=== PATIENT | female | born 1935 | race Caucasian/White ===

== ENCOUNTER → 2016-07-23 | Outpatient (CLI) | payer MEDICARE, OTHER ==
[~2016-07-23] MED LIST: AMLO5TAB2 PO; ASPI81CH CHEW; CHOL1TAB42 PO; CIPR250T52 PO; ESTR0.62 VAGINAL; ISOS20TA PO; LEVO88TA2 PO; MULTTAB67 PO; NITR1SUB3 SL; REST0.05 EACH EYE; SIMV10TA PO; SIMV20TA PO; TELM40 PO
[2016-07-23 10:08] LABS: AUTOMATED NEUTROPHIL # 4.9 TH/MM3 (1.8-7.7); BASOPHIL % 0.4 % (0.0-2.0); EOSINOPHIL # 0.2 TH/MM3 (0-0.4); HEMATOCRIT 37.1 % (35.0-46.0); HEMO FLAGS DIFF FINAL; LYMPH % 25.4 % (9.0-44.0); MEAN CELL VOLUME 86.4 FL (80.0-100.0); MEAN CORPUSCULAR HEMOGLOBIN 29.4 PG (27.0-34.0); MONO % 8.2 % (0.0-8.0); PLATELET COUNT 240 TH/MM3 (150-450); RED BLOOD COUNT 4.29 MIL/MM3 (4.00-5.30); RED CELL DISTRIBUTION WIDTH 13.5 % (11.6-17.2); WHITE BLOOD COUNT 7.8 TH/MM3 (4.0-11.0)
[2016-07-23 10:37] LABS: ANION GAP 8 MEQ/L (5-15); AST (GOT) 18 U/L (15-37); BLOOD UREA NITROGEN 14 MG/DL (7-18); CHLORIDE 101 MEQ/L (98-107); GLOMERULAR FILTRATION RATE 73 ML/MIN (>89); GLUCOSE,FASTING 84 MG/DL (74-99); POTASSIUM 4.3 MEQ/L (3.5-5.1); SODIUM (NA) 134 MEQ/L (136-145)
[2016-07-23 10:48] LABS: ALKALINE PHOSPHATASE 93 U/L (45-117); ALT (GPT) 28 U/L (10-53); HDL CHOLESTEROL 62.2 MG/DL (40.0-60.0); LDL CHOLESTEROL 75 MG/DL (0-99); TOTAL BILIRUBIN ADULT 0.4 MG/DL (0.2-1.0)
== END ==
LOC: PLAB 07:31
PROVIDERS: ATTEND Family Medicine
DX: Z00.00 Encounter for general adult medical examination without abnormal findings (principal); E87.1 Hypo-osmolality and hyponatremia; E03.8 Other specified hypothyroidism; I10 Essential (primary) hypertension
CPT/HCPCS: 36415; 80053; 80061; 84443; 85025

== ENCOUNTER → 2016-12-09 | Outpatient (CLI) | payer MEDICARE, OTHER ==
[2016-12-09 13:14] LABS: AUTOMATED NEUTROPHIL # 5.4 TH/MM3 (1.8-7.7); BASOPHIL % 0.5 % (0.0-2.0); EOSINOPHIL # 0.1 TH/MM3 (0-0.4); EOSINOPHIL % 0.8 % (0.0-4.0); HEMATOCRIT 37.7 % (35.0-46.0); HEMO FLAGS DIFF FINAL; LYMPH % 20.3 % (9.0-44.0); LYMPHOCYTE # 1.6 TH/MM3 (1.0-4.8); MEAN CELL VOLUME 86.1 FL (80.0-100.0); MEAN CORPUSCULAR HEMOGLOBIN 29.9 PG (27.0-34.0); MEAN CORPUSCULAR HGB CONC 34.7 % (32.0-36.0); MONO % 7.6 % (0.0-8.0); NEUT % 70.8 % (16.0-70.0); PLATELET COUNT 266 TH/MM3 (150-450); RED BLOOD COUNT 4.38 MIL/MM3 (4.00-5.30); RED CELL DISTRIBUTION WIDTH 13.6 % (11.6-17.2); WHITE BLOOD COUNT 7.7 TH/MM3 (4.0-11.0)
[2016-12-09 13:56] LABS: ALKALINE PHOSPHATASE 106 U/L (45-117); ALT (GPT) 27 U/L (10-53); ANION GAP 9 MEQ/L (5-15); AST (GOT) 25 U/L (15-37); BICARBONATE 24.2 MEQ/L (21.0-32.0); BLOOD UREA NITROGEN 14 MG/DL (7-18); CHLORIDE 94 MEQ/L (98-107); GLOMERULAR FILTRATION RATE 71 ML/MIN (>89); POTASSIUM 4.6 MEQ/L (3.5-5.1); SODIUM (NA) 127 MEQ/L (136-145); TOTAL BILIRUBIN ADULT 0.5 MG/DL (0.2-1.0)
== END ==
LOC: PLAB 10:38
PROVIDERS: ATTEND Family Medicine
DX: R10.13 Epigastric pain (principal); R11.0 Nausea
CPT/HCPCS: 36415; 80053; 85025

== ENCOUNTER 2016-12-16 18:17 | Observation (INO) | payer MEDICARE, OTHER ==
[~2016-12-16] VITALS: Ht 158.8 cm; Wt 65.0 kg
[2016-12-16] VITALS (7 sets, daily range): BP systolic 146–197; BP diastolic 75–97; PULSE 64–80; RESP 15–20; TEMP 98.1–98.3; O2SAT 97–98
[~2016-12-16 18:17] MED LIST changes: -ASPI81CH CHEW; -ESTR0.62 VAGINAL; -ISOS20TA PO; -MULTTAB67 PO; -NITR1SUB3 SL; -SIMV20TA PO
--- NOTE | 2016-12-16 19:19 | PD ---
HPI Chief Complaint: Chest Pain Time Seen by Provider: 18:43 Travel History International Travel<30 days: No Contact w/Intl Traveler<30days: No Traveled to known affect area: No History of Present Illness HPI This 81-year-old female says she's been having some chest pain. When she is active she seems to get the pain when she stopped doing what she was doing sheet and rests it goes away. It's been going on throughout the day. The longest episode lasted about 20 minutes. There was no associated shortness of breath. There is no radiation of the pain. She does not recall having pain like this before. She has a history of hypertension and is on Micardis and amlodipine. Her gave her an extra 25 mg of metoprolol because her blood pressure was elevated at home. She does not take aspirin. She has a history of some stomach trouble and has avoided in the past. PFSH Past Medical History Arthritis: Yes (BACK LUMBAR) Blood Disorders: No Cancer: No Cardiovascular Problems: No High Cholesterol: Yes Cerebrovascular Accident: Yes Diabetes: No Diminished Hearing: No Endocrine: Yes Gastrointestinal Disorders: Yes (GERD) Genitourinary: Yes (FREQ. 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 CATARACT EXTRACT.) Genitourinary Surgery: Yes (RADIO FREQUENCY ABLATION RENAL CYST, SUB URETHRAL SLING) Gynecologic Surgery: No Joint Replacement: No Oral Surgery: No Pacemaker: No Thoracic Surgery: No Other Surgery: Yes (SUB URETHRAL SLING, ABLATION TO RIGHT KIDNEY) Social History Alcohol Use: No Tobacco Use: No Substance Use: No Allergies-Medications (Allergen,Severity, Reaction): Coded Allergies: Sulfa (Verified Allergy, Severe, Rash, 12/16/16) Reported Meds & Prescriptions Reported Meds & Active Scripts Active Reported Amlodipine (Amlodipine Besylate) 5 Mg Tab 0.5 Tab PO DAILY Cipro (Ciprofloxacin HCl) 250 Mg Tab 250 Mg PO EVERY OTHER DAY Restasis Opth 0.05% (Cyclosporine Opth 0.05%) 0.05% Emul 1 Drop EACH EYE BID Vitamin D-3 (Cholecalciferol) 2,000 Unit Tab 1 Tab PO DAILY Simvastatin 10 Mg Tab 10 Mg PO DAILY Micardis (Telmisartan) 40 Mg Tab 40 Mg PO DAILY Levothyroxine (Levothyroxine Sodium) 88 Mcg Tab 88 Mcg PO DAILY Review of Systems General / Constitutional: No: Fever, Chills Eyes: No: Diploplia, Blurred Vision HENT: No: Headaches, Vertigo Cardiovascular: Positive: Chest Pain or Discomfort, No: Palpitations Respiratory: No: Cough, Shortness of Breath Gastrointestinal: No: Vomiting, Diarrhea Genitourinary: No: Urgency, Frequency Musculoskeletal: No: Myalgias, Arthralgias Skin: No Rash, No Itching Neurologic: No: Weakness, Dizziness Psychiatric: No: Anxiety, Depression Endocrine: No: Heat Intolerance, Cold Intolerance Hematologic/Lymphatic: No: Easy Bruising Physical Exam Narrative GENERAL: Well-developed female SKIN: Focused skin assessment warm/dry. HEAD: Atraumatic. Normocephalic. EYES: Pupils equal and round. No scleral icterus. No injection or drainage. ENT: No nasal bleeding or discharge. Mucous membranes pink and moist. NECK: Trachea midline. No JVD. CARDIOVASCULAR: Regular rate and rhythm. No murmur appreciated. RESPIRATORY: No accessory muscle use. Clear to auscultation. Breath sounds equal bilaterally. GASTROINTESTINAL: Abdomen soft, non-tender, nondistended. Hepatic and splenic margins not palpable. MUSCULOSKELETAL: No obvious deformities. No clubbing. No cyanosis. No edema. NEUROLOGICAL: Awake and alert. No obvious cranial nerve deficits. Motor grossly within normal limits. Normal speech. PSYCHIATRIC: Appropriate mood and affect; insight and judgment normal. Data Data Last Documented VS Vital Signs Date Time Temp Pulse Resp B/P Pulse Ox O2 Delivery O2 Flow Rate FiO2 12/16/16 19:28 97 Room Air 12/16/16 19:03 68 15 197/90 12/16/16 18:19 98.1 Orders Electrocardiogram (12/16/16 19:16) Complete Blood Count With Diff (12/16/16 19:16) Comprehensive Metabolic Panel (12/16/16 19:16) Magnesium (Mg) (12/16/16 19:16) Prothrombin Time / Inr (Pt) (12/16/16 19:16) Act Partial Throm Time (Ptt) (12/16/16 19:16) Troponin I (12/16/16 19:16) Chest, Single Ap (12/16/16 19:16) Ecg Monitoring (12/16/16 19:16) Iv Access Insert/Monitor (12/16/16 19:16) Oximetry (12/16/16 19:16) Sodium Chloride 0.9% Flush (Ns Flush) (12/16/16 19:30) Aspirin Ec (Ecotrin Ec) (12/16/16 19:30) Labs Laboratory Tests Test 12/16/16 19:00 White Blood Count 9.9 TH/MM3 Red Blood Count 4.52 MIL/MM3 Hemoglobin 13.1 GM/DL Hematocrit 39.8 % Mean Corpuscular Volume 88.0 FL Mean Corpuscular Hemoglobin 29.0 PG Mean Corpuscular Hemoglobin 33.0 % Concent Red Cell Distribution Width 12.6 % Platelet Count 287 TH/MM3 Mean Platelet Volume 7.9 FL Neutrophils (%) (Auto) 62.4 % Lymphocytes (%) (Auto) 26.8 % Monocytes (%) (Auto) 7.9 % Eosinophils (%) (Auto) 1.9 % Basophils (%) (Auto) 1.0 % Neutrophils # (Auto) 6.1 TH/MM3 Lymphocytes # (Auto) 2.7 TH/MM3 Monocytes # (Auto) 0.8 TH/MM3 Eosinophils # (Auto) 0.2 TH/MM3 Basophils # (Auto) 0.1 TH/MM3 CBC Comment DIFF FINAL Differential Comment Prothrombin Time 10.6 SEC Prothromb Time International 1.0 RATIO Ratio Activated Partial 29.3 SEC Thromboplast Time Sodium Level 132 MEQ/L Potassium Level 3.7 MEQ/L Chloride Level 98 MEQ/L Carbon Dioxide Level 26.3 MEQ/L Anion Gap 8 MEQ/L Blood Urea Nitrogen 11 MG/DL Creatinine 0.73 MG/DL Estimat Glomerular Filtration 77 ML/MIN Rate Random Glucose 106 MG/DL Calcium Level 9.1 MG/DL Magnesium Level 2.4 MG/DL Total Bilirubin 0.4 MG/DL Aspartate Amino Transf 23 U/L (AST/SGOT) Alanine Aminotransferase 30 U/L (ALT/SGPT) Alkaline Phosphatase 111 U/L Troponin I LESS THAN 0.02 NG/ML Total Protein 8.7 GM/DL Albumin 4.4 GM/DL MDM Medical Decision Making Medical Screen Exam Complete: Yes Emergency Medical Condition: Yes Medical Record Reviewed: Yes Differential Diagnosis Differential includes hypertension, atypical chest pain, coronary artery disease Narrative Course Chest x-ray is negative. EKG shows normal sinus rhythm. Troponin is negative. Patient will be admitted to chest pain center for further evaluation of the chest pain Diagnosis Primary Impression: Chest pain Qualified Code: R07.9 - Chest pain, unspecified type Admitting Information Admitting Physician Requests: Observation Moses Guerrero MD December 16, 2016 19:18
[2016-12-16 19:29] LABS: AUTOMATED NEUTROPHIL # 6.1 TH/MM3 (1.8-7.7); BASOPHIL # 0.1 TH/MM3 (0-0.2); EOSINOPHIL # 0.2 TH/MM3 (0-0.4); EOSINOPHIL % 1.9 % (0.0-4.0); HEMATOCRIT 39.8 % (35.0-46.0); HEMO FLAGS DIFF FINAL; LYMPH % 26.8 % (9.0-44.0); LYMPHOCYTE # 2.7 TH/MM3 (1.0-4.8); MONO % 7.9 % (0.0-8.0); NEUT % 62.4 % (16.0-70.0); PLATELET COUNT 287 TH/MM3 (150-450); RED BLOOD COUNT 4.52 MIL/MM3 (4.00-5.30); RED CELL DISTRIBUTION WIDTH 12.6 % (11.6-17.2); WHITE BLOOD COUNT 9.9 TH/MM3 (4.0-11.0)
[2016-12-16] MEDS ORDERED: ASPIRIN EC 325 MG TABEC PO ONE (19:30)
[2016-12-16] MEDS ORDERED: SODIUM CHLORIDE 0.9% FLUSH 10 ML FLUSH IVF PRN (19:30)
[2016-12-16 19:37] LABS: CHLORIDE 98 MEQ/L (98-107); POTASSIUM 3.7 MEQ/L (3.5-5.1); SODIUM (NA) 132 MEQ/L (136-145)
[2016-12-16 19:41] LABS: ANION GAP 8 MEQ/L (5-15); APTT (PATIENT) 29.3 SEC (24.3-30.1); BICARBONATE 26.3 MEQ/L (21.0-32.0); BLOOD UREA NITROGEN 11 MG/DL (7-18); MAGNESIUM 2.4 MG/DL (1.5-2.5); PROTHROMBIN TIME - PATIENT 10.6 SEC (9.8-11.6)
[2016-12-16 19:44] LABS: ALT (GPT) 30 U/L (10-53); AST (GOT) 23 U/L (15-37); GLOMERULAR FILTRATION RATE 77 ML/MIN (>89)
[2016-12-16 19:46] LABS: TOTAL BILIRUBIN ADULT 0.4 MG/DL (0.2-1.0)
[2016-12-16 19:47] LABS: ALKALINE PHOSPHATASE 111 U/L (45-117)
--- NOTE | 2016-12-16 19:48 | RADHPO ---
EXAM DATE/TIME: 12/16/2016 19:32 [facility] COMPARISON: No previous studies available for comparison. INDICATIONS : Chest pain. MEDICAL HISTORY : None. SURGICAL HISTORY : None. ENCOUNTER: Initial ACUITY: 2 days PAIN SCORE: 2/10 LOCATION: Bilateral chest FINDINGS: A single view of the chest demonstrates the lungs to be symmetrically aerated without evidence of mas s, infiltrate or effusion. The cardiomediastinal contours are unremarkable. Osseous structures are intact. CONCLUSION: No acute disease. Ash Gibbons MD on December 16, 2016 at 19:46 Board Certified Radiologist. This report was verified electronically.
[2016-12-16] MEDS ORDERED: SODIUM CHLORIDE 0.9% FLUSH 10 ML FLUSH IV FLUSH PRN (20:15)
[2016-12-16] MEDS: SODIUM CHLORIDE 0.9% FLUSH 10 ML FLUSH IV FLUSH SCH (21:00)
[2016-12-17] VITALS (7 sets, daily range): BP systolic 100–158; BP diastolic 65–88; PULSE 69–87; RESP 18–20; TEMP 97.2–98; O2SAT 95–98
[2016-12-17] MEDS: LEVOTHYROXINE SODIUM 88 MCG TAB PO SCH (05:25)
--- NOTE | 2016-12-17 08:11 | EKG ---
Date Performed: 12/16/2016 Time Performed: 22:57:54 PTAGE: 81 years EKG: Sinus rhythm . Septal T wave changes are nonspecific Borderline ECG PREVIOUS TRACING : 10/30/2009 17.46 No significant change from previous tracing noted. DOCTOR: Sarthak Diaz Interpretating Date/Time 12/17/2016 08:09:30
--- NOTE | 2016-12-17 08:20 | EKG ---
Date Performed: 12/16/2016 Time Performed: 18:33:36 PTAGE: 81 years EKG: Sinus rhythm Normal ECG PREVIOUS TRACING : 10/30/2009 17.46 No significant change from previous tracing noted. DOCTOR: Sarthak Diaz Interpretating Date/Time 12/17/2016 08:19:40
--- NOTE | 2016-12-17 08:41 | HHI.HP ---
[facility] Service [facility] Primary Care Physician Debbie Jules MD Admission Diagnosis CHEST PAIN Diagnoses: (1) Chest pain Diagnosis: Principal Chief Complaint: chest pain Travel History International Travel<30 Days: No Contact w/Intl Traveler <30 Da: No Traveled to Known Affected Are: No History of Present Illness patient is a 81 y/o female with history of hypertension and hypothyroidism who presented to ER with chest pain. she says that the pain started last night. pain was mild in intensity. it had some radiation to the left arm and was associated with nausea. she says that she wasn't feeling good yesterday and when she checked her blood pressure ' it was high'. she's pain free now and denies any sob or nausea. Review of Systems Constitutional: DENIES: Fever, Weight loss, Chills, Night Sweats Eyes: DENIES: Blurred vision, Diplopia, Vision loss, Double Vision Ears, nose, mouth, throat: DENIES: Tinnitus, Vertigo, Throat pain, Epistaxis Respiratory: DENIES: Apneas, Cough, Snoring, Wheezing, Hemoptysis, Sputum production, Shortness of breath Cardiovascular: COMPLAINS OF: Chest pain, DENIES: Palpitations, Syncope, Dyspnea on Exertion, PND, Lower Extremity Edema, Orthopnea, Claudication Gastrointestinal: COMPLAINS OF: Nausea, DENIES: Abdominal pain, Black stools, Bloody stools, Constipation, Diarrhea, Vomiting, Difficulty Swallowing, Anorexia Genitourinary: DENIES: Urinary frequency, Urgency, Hematuria, Dysuria Musculoskeletal: DENIES: Joint pain, Muscle aches, Stiffness, Joint Swelling Integumentary: DENIES: Rash Neurologic: DENIES: Abnormal gait, Headache, Localized weakness, Paresthesias, Seizures, Speech Problems, Tremor, Poor Balance Psychiatric: DENIES: Anxiety, Confusion, Mood changes, Depression, Hallucinations, Agitation, Suicidal Ideation, Homicidal Ideation, Delusions Past Family Social History Past Medical History hypertension hypothyroidism Past Surgical History cholecystectomy hip surgery Reported Medications Amlodipine (Amlodipine Besylate) 5 Mg Tab 0.5 Tab PO DAILY Cipro (Ciprofloxacin HCl) 250 Mg Tab 250 Mg PO EVERY OTHER DAY Restasis Opth 0.05% (Cyclosporine Opth 0.05%) 0.05% Emul 1 Drop EACH EYE BID Vitamin D-3 (Cholecalciferol) 2,000 Unit Tab 1 Tab PO DAILY Simvastatin 10 Mg Tab 10 Mg PO DAILY Micardis (Telmisartan) 40 Mg Tab 40 Mg PO DAILY Levothyroxine (Levothyroxine Sodium) 88 Mcg Tab 88 Mcg PO DAILY Allergies: Coded Allergies: Sulfa (Verified Allergy, Severe, Rash, 12/16/16) Active Ordered Medications Current Medications Sodium Chloride (NS Flush) 2 ml UNSCH PRN IVF FLUSH AFTER USING IV ACCESS; Start 12/16/16 at 19:30; Stop 12/16/16 at 21:01; Status DC Aspirin (Ecotrin Ec) 325 mg ONCE ONCE PO Last administered on 12/16/16 19:20 ; Start 12/16/16 at 19:30; Stop 12/16/16 at 19:31; Status DC Sodium Chloride (NS Flush) 2 ml UNSCH PRN IV FLUSH FLUSH AFTER USING IV ACCESS ; Start 12/16/16 at 20:15 Sodium Chloride (NS Flush) 2 ml BID IV FLUSH ; Start 12/16/16 at 21:00 Amlodipine Besylate (Norvasc) 2.5 mg DAILY PO ; Start 12/17/16 at 09:00 Levothyroxine Sodium (Synthroid) 88 mcg DAILY@07 PO Last administered on 05:25; Start 12/17/16 at 07:00 Pravastatin Sodium (Pravachol) 20 mg DAILY PO CM; Start 12/17/16 at 09:00 Losartan Potassium (Cozaar) 50 mg DAILY PO BPM; Start 12/17/16 at 09:00 Family History heart attack in father at his 60's. Social History no smoking or drinking. Physical Exam Vital Signs Vital Signs Date Time Temp Pulse Resp B/P Pulse Ox O2 Delivery O2 Flow Rate FiO2 12/17/16 08:21 97 21 12/17/16 04:00 97.2 73 20 116/70 97 12/16/16 22:08 64 12/16/16 22:00 98.3 68 20 157/87 98 12/16/16 21:39 63 16 146/75 98 12/16/16 21:39 98 21 12/16/16 20:01 65 166/84 97 Room Air 12/16/16 19:28 97 Room Air 12/16/16 19:03 68 15 197/90 98 Room Air 12/16/16 18:38 72 12/16/16 18:19 98.1 80 17 176/97 98 Physical Exam GENERAL: This is a well-nourished, well-developed patient, in no apparent distress. SKIN: No rashes, ecchymoses or lesions. Cool and dry. HEAD: Atraumatic. Normocephalic. No temporal or scalp tenderness. EYES: Pupils equal round and reactive. Extraocular motions intact. No scleral icterus. No injection or drainage. ENT: Nose without bleeding, purulent drainage or septal hematoma. Throat without erythema, tonsillar hypertrophy or exudate. Uvula midline. Airway patent. NECK: Trachea midline. No JVD or lymphadenopathy. Supple, nontender, no meningeal signs. CARDIOVASCULAR: Regular rate and rhythm without murmurs, gallops, or rubs. RESPIRATORY: Clear to auscultation. Breath sounds equal bilaterally. No wheezes , rales, or rhonchi. GASTROINTESTINAL: Abdomen soft, non-tender, nondistended. No hepato-splenomegaly , or palpable masses. No guarding. MUSCULOSKELETAL: Extremities without clubbing, cyanosis, or edema. No joint tenderness, effusion, or edema noted. No calf tenderness. Negative Homans sign bilaterally. NEUROLOGICAL: Awake and alert. Cranial nerves II through XII intact. Motor and sensory grossly within normal limits. Five out of 5 muscle strength in all muscle groups. Normal speech. Laboratory Laboratory Tests Test 12/16/16 12/17/16 12/17/16 19:00 00:00 01:00 White Blood Count 9.9 Red Blood Count 4.52 Hemoglobin 13.1 Hematocrit 39.8 Mean Corpuscular Volume 88.0 Mean Corpuscular Hemoglobin 29.0 Mean Corpuscular Hemoglobin 33.0 Concent Red Cell Distribution Width 12.6 Platelet Count 287 Mean Platelet Volume 7.9 Neutrophils (%) (Auto) 62.4 Lymphocytes (%) (Auto) 26.8 Monocytes (%) (Auto) 7.9 Eosinophils (%) (Auto) 1.9 Basophils (%) (Auto) 1.0 Neutrophils # (Auto) 6.1 Lymphocytes # (Auto) 2.7 Monocytes # (Auto) 0.8 Eosinophils # (Auto) 0.2 Basophils # (Auto) 0.1 CBC Comment DIFF FINAL Differential Comment Prothrombin Time 10.6 Prothromb Time International 1.0 Ratio Activated Partial 29.3 Thromboplast Time Sodium Level 132 Potassium Level 3.7 Chloride Level 98 Carbon Dioxide Level 26.3 Anion Gap 8 Blood Urea Nitrogen 11 Creatinine 0.73 Estimat Glomerular Filtration 77 Rate Random Glucose 106 Calcium Level 9.1 Magnesium Level 2.4 Total Bilirubin 0.4 Aspartate Amino Transf 23 (AST/SGOT) Alanine Aminotransferase 30 (ALT/SGPT) Alkaline Phosphatase 111 Troponin I LESS THAN 0.02 0.07 0.07 Total Protein 8.7 Albumin 4.4 Total Creatine Kinase 98 86 Result Diagram: 12/16/16189912/16/161899 Imaging Last Impressions Chest X-Ray 12/16/161915 Signed Impressions: Service Date/Time: Friday, December 16, 2016 19:32 - CONCLUSION: No acute disease. Ash Gibbons MD EKG; sinus rhythm with no acute ST-T changes. Assessment and Plan Assessment and Plan A/P - chest pain with mild elevation of troponin continue aspirin and statin- will consult cardiology -hypertension- better controlled- continue amlodipine and cozaar- continue to monitor and adjust the regimen as needed -hypothyroidism- continue levothyroxine -DVT prophylaxis with SCD's Discussed Condition With the patient. Problem Qualifiers (1) Chest pain: Qualified Code: R07.9 - Chest pain, unspecified type Sindhu Jensen MD December 17, 2016 08:40
[2016-12-17] MEDS: PRAVASTATIN SOD 20 MG TAB PO SCH (09:50)
[2016-12-17] MEDS: LOSARTAN 50 MG TAB PO SCH (09:50)
[2016-12-17] MEDS: amLODIPine BESYLATE 5 MG TAB PO SCH (09:50)
[2016-12-17] MEDS: SODIUM CHLORIDE 0.9% FLUSH 10 ML FLUSH IV FLUSH SCH ×2 (09:50→21:49)
[2016-12-17] MEDS: ASPIRIN EC 81 MG TABEC PO SCH (09:54)
--- NOTE | 2016-12-17 12:00 | EKG ---
Date Performed: 12/17/2016 Time Performed: 00:56:30 PTAGE: 81 years EKG: Sinus rhythm Normal ECG PREVIOUS TRACING : 12/16/2016 22.57 No significant change from previous tracing noted. DOCTOR: Sarthak Diaz Interpretating Date/Time 12/17/2016 12:00:00
--- NOTE | 2016-12-17 20:46 | MB ---
cc: HILARIA JENSEN HUMAYUN A. M.D. DATE OF CONSULTATION: 12/17/2016 REASON FOR CONSULTATION: Thank you, Dr. Jensen, for asking us to see his very pleasant 81 year-old white female who presents with chest pain. She had some borderline troponin at less than 0.02, 0.07, 0.07. The patient has been feeling "crummy" over the last weekend. She also was noted to have very high blood pressures. She now states that she is feeling much better. PAST MEDICAL HISTORY: Positive for hypotension, hypothyroidism, cholecystectomy, hip surgery. MEDICATIONS AT HOME: Include: 1. Amlodipine 2. Cipro. 3. Restasis. 4. Simvastatin. 5. Micardis. 6. Levothyroxine. 7. Aspirin ALLERGIES SULFA. FAMILY HISTORY: Positive for heart attack. PHYSICAL EXAMINATION: VITAL SIGNS: Pulse was 73, blood pressure 142/80, respiratory rate 18. EYES: No xanthelasma. MOUTH: Shows no cyanosis or pallor. NECK: No JVD. HEART: Two heart sounds, no murmurs. CHEST: Chest was clear. ABDOMEN: Soft. No hepatosplenomegaly. EXTREMITIES: Legs reveal no cyanosis or edema. NEUROLOGIC: Grossly intact. SKIN: Grossly intact. PSYCHOLOGICAL: No suicidal ideation. LABORATORY DATA: White count 9.9, hemoglobin 13.5, troponin slightly higher 0.07, 0.07, INR 1.0, hemoglobin 13.1, white count 9.9. Platelet count 287. Electrocardiogram is read and shows no significant change, sinus rhythm. ASSESSMENT/PLAN The patient has been ruled out for myocardial infarction. We have given her the option of outpatient nuclear stress testing. She prefers inpatient. Will therefore order the nuclear stress test. If the nuclear stress test is negative, she can be discharged. Thank you kindly for asking us to see this very pleasant patient. Arash Rodriguez MD, FRCP,[facility] /7:38 PM /8:24 PM
[2016-12-18] VITALS: BP 123/72; PULSE 74; RESP 20; TEMP 96.3; O2SAT 94
[2016-12-18 04:00] VITALS: BP 153/80; PULSE 66; RESP 20; TEMP 97.4; O2SAT 96
[2016-12-18] MEDS: LEVOTHYROXINE SODIUM 88 MCG TAB PO SCH (06:16)
[2016-12-18 07:56] VITALS: BP 153/77; PULSE 72; RESP 18; TEMP 96.8; O2SAT 96
[2016-12-18] MEDS: SODIUM CHLORIDE 0.9% FLUSH 10 ML FLUSH IV FLUSH SCH (08:16)
[2016-12-18] MEDS: PRAVASTATIN SOD 20 MG TAB PO SCH (08:17)
[2016-12-18] MEDS: amLODIPine BESYLATE 5 MG TAB PO SCH (08:17)
[2016-12-18] MEDS: LOSARTAN 50 MG TAB PO SCH (08:17)
[2016-12-18] MEDS: ASPIRIN EC 81 MG TABEC PO SCH (08:17)
--- NOTE | 2016-12-18 08:23 | HHI.PR ---
Subjective Remarks resting comfortably with no distress. no chest pain or sob. no new complaints. awaiting stress test. Objective Vitals Vital Signs Date Time Temp Pulse Resp B/P Pulse Ox O2 Delivery O2 Flow Rate FiO2 12/18/16 07:56 96.8 72 18 153/77 96 12/18/16 04:00 97.4 66 20 153/80 96 12/18/16 00:00 96.3 74 20 123/72 94 12/17/16 21:37 97 21 12/17/16 20:00 97.3 87 20 110/65 97 12/17/16 20:00 77 12/17/16 16:00 98.0 83 20 100/65 98 12/17/16 13:24 97.9 81 18 142/80 95 I/O 12/17/16 12/17/16 12/17/16 12/18/16 12/18/16 12/18/16 07:00 15:00 23:00 07:00 15:00 23:00 Intake Total 0 ml 500 ml 360 ml 0 ml Balance 0 ml 500 ml 360 ml 0 ml Intake Oral 0 ml 500 ml 360 ml 0 ml # Voids 2 2 1 # Bowel Movements 0 2 0 Result Diagram: 12/16/16189912/16/161899 Imaging Last Impressions Chest X-Ray 12/16/161915 Signed Impressions: Service Date/Time: Friday, December 16, 2016 19:32 - CONCLUSION: No acute disease. Ash Gibbons MD Objective Remarks GENERAL: This is a well-nourished, well-developed patient, in no apparent distress. CARDIOVASCULAR: Regular rate and regular rhythm without murmurs, gallops, or rubs. RESPIRATORY: Clear to auscultation. Breath sounds equal bilaterally. No wheezes , rales, or rhonchi. GASTROINTESTINAL: Abdomen soft, non-tender, nondistended. Normal, active bowel sounds MUSCULOSKELETAL: Extremities without clubbing, cyanosis, or edema. NEURO: Alert & Oriented x4 to person, place, time, situation. Moves all ext x4 Procedures none Medications and IVs Current Medications Sodium Chloride (NS Flush) 2 ml UNSCH PRN IVF FLUSH AFTER USING IV ACCESS; Start 12/16/16 at 19:30; Stop 12/16/16 at 21:01; Status DC Aspirin (Ecotrin Ec) 325 mg ONCE ONCE PO Last administered on 12/16/16 19:20 ; Start 12/16/16 at 19:30; Stop 12/16/16 at 19:31; Status DC Sodium Chloride (NS Flush) 2 ml UNSCH PRN IV FLUSH FLUSH AFTER USING IV ACCESS ; Start 12/16/16 at 20:15 Sodium Chloride (NS Flush) 2 ml BID IV FLUSH Last administered on 12/17/16 21: 49; Start 12/16/16 at 21:00 Amlodipine Besylate (Norvasc) 2.5 mg DAILY PO Last administered on 12/17/16 09 :50; Start 12/17/16 at 09:00 Levothyroxine Sodium (Synthroid) 88 mcg DAILY@07 PO Last administered on 06:16; Start 12/17/16 at 07:00 Pravastatin Sodium (Pravachol) 20 mg DAILY PO CM Last administered on 12/17/16 09:50; Start 12/17/16 at 09:00 Losartan Potassium (Cozaar) 50 mg DAILY PO BPM Last administered on 12/17/16 09 :50; Start 12/17/16 at 09:00 Aspirin (Ecotrin Ec) 81 mg DAILY PO Last administered on 12/17/16 09:54; Start 12/17/16 at 09:00 A/P Assessment and Plan A/P - chest pain with mild elevation of troponin continue aspirin and statin- cardiology consult appreciated- plan for stress test today. -hypertension- better controlled- continue amlodipine and cozaar- -hypothyroidism- continue levothyroxine -DVT prophylaxis with SCD's Discharge Planning dc home today if the stress test is negative. f/u; pcp. see med list. d/w the patient and the RN. Sindhu Jensen MD December 18, 2016 08:23
--- NOTE | 2016-12-18 08:26 | HHI.DCPOC ---
Discharge Care Plan Diagnosis: (1) Chest pain Your Health Problems Are: Chest Pain Goals to Promote Your Health * To prevent worsening of your condition and complications * To maintain your health at the optimal level Directions to Meet Your Goals Take your medications as prescribed Follow your dietary instruction Follow activity as directed Keep your appointments as scheduled Take your immunizations and boosters as scheduled If your symptoms worsen call your PCP, if no PCP go to Urgent Care Center or Emergency Room Smoking is Dangerous to Your Health. Avoid second hand smoke Call the 24-hour hour crisis hotline for domestic abuse at Sindhu Jensen MD December 18, 2016 08:26
[2016-12-18] MEDS ORDERED: REGADENOSON INJ 0.4 MG/5 ML SYR IV ONE (10:35)
[2016-12-18 12:00] VITALS: BP 132/71; PULSE 78; RESP 18; TEMP 98.1; O2SAT 98
--- NOTE | 2016-12-18 12:15 | RADHPO ---
EXAM DATE/TIME: 12/18/2016 10:29 [facility] COMPARISON: No previous studies available for comparison. INDICATIONS : Chest pain for 1 day. Atrial fibrillation. DOSE: 25.9 mCi Tc99m Myoview at stress. 8.2 mCi Tc99m Myoview at rest. 0.4 mg Lexiscan STRESS SYMPTOMS: Stomach ache and short of breath. EJECTION FRACTION: > 70% MEDICAL HISTORY : Hypothyroidism. SURGICAL HISTORY : Cholecystectomy. Left hip surgery and urethral sling. ENCOUNTER: Initial ACUITY: 1 day PAIN SCALE: 2/10 LOCATION: Midsternal chest TECHNIQUE: The patient underwent pharmacologic stress with infusion of prescribed dose. Continuous ECG tracing was monitored during stress. Gated SPECT imaging was performed after stress and conventional SPECT i maging was performed at rest. The examination was performed on a SPECT/CT scanner, both attenuation and non-corrected datasets were reviewed. FINDINGS: DISTRIBUTION: The maximum perfused segment at stress is anterior lateral wall. There is redistribution in the mid septal wall. GATED STUDY: The ejection fraction is greater than 70%, however there is hypokinesis in the septum. CONCLUSION: Findings would be consistent with stress-induced ischemia mid inferior wall. RISK CATEGORY: Low (<1% Annual Mortality Rate) Eliel Rios MD FACR on December 18, 2016 at 12:09 Board Certified Radiologist. This report was verified electronically.
--- NOTE | 2016-12-18 13:19 | HHI.PR ---
Addendum To [facility] Progress Not Reason for addendum: Additonal documentation (result of stress test d/w ; will be followed up as outpatient.) Sindhu Jensen MD December 18, 2016 13:19
--- NOTE | 2016-12-18 13:20 | HHI.DS ---
Discharge Summary Admission Date December 16, 2016 at 20:09 Discharge Date: December 18, 2016 Admitting Diagnosis CHEST PAIN (1) Chest pain ICD Code: R07.9 Diagnosis: Principal Procedures none Brief History - From Admission patient is a 81 y/o female with history of hypertension and hypothyroidism who presented to ER with chest pain. she says that the pain started last night. pain was mild in intensity. it had some radiation to the left arm and was associated with nausea. she says that she wasn't feeling good yesterday and when she checked her blood pressure ' it was high'. she's pain free now and denies any sob or nausea. CBC/BMP: 12/16/160 12/16/161899 Significant Findings Laboratory Tests Test 12/16/16 12/17/16 12/17/16 19:00 00:00 01:00 Sodium Level 132 MEQ/L (136-145) Estimat Glomerular Filtration 77 ML/MIN (>89) Rate Troponin I LESS THAN 0.02 0.07 NG/ML 0.07 NG/ML NG/ML (0.02-0.05) (0.02-0.05) (0.02-0.05) Total Protein 8.7 GM/DL (6.4-8.2) Imaging Last Impressions Myocardial Perfusion Scan Nuc Med 12/18/16 0000 Signed Impressions: Service Date/Time: Sunday, December 18, 2016 10:29 - CONCLUSION: Findings would be consistent with stress-induced ischemia mid inferior wall. RISK CATEGORY: Low (<1%% Annual Mortality Rate) Eliel Rios MD FACR Chest X-Ray 12/16/16 1916 Signed Impressions: Service Date/Time: Friday, December 16, 2016 19:32 - CONCLUSION: No acute disease. Ash Gibbons MD PE at Discharge GENERAL: This is a well-nourished, well-developed patient, in no apparent distress. CARDIOVASCULAR: Regular rate and regular rhythm without murmurs, gallops, or rubs. RESPIRATORY: Clear to auscultation. Breath sounds equal bilaterally. No wheezes , rales, or rhonchi. GASTROINTESTINAL: Abdomen soft, non-tender, nondistended. Normal, active bowel sounds MUSCULOSKELETAL: Extremities without clubbing, cyanosis, or edema. NEURO: Alert & Oriented x4 to person, place, time, situation. Moves all ext x4 Hospital Course - chest pain with mild elevation of troponin continue aspirin and statin- cardiology consult appreciated- plan for stress test today. -hypertension- better controlled- continue amlodipine and cozaar- -hypothyroidism- continue levothyroxine -DVT prophylaxis with SCD's Pt Condition on Discharge: Good Discharge Disposition: Discharge Home Discharge Time: <= 30 minutes Discharge Instructions DIET: Follow Instructions for: Heart Healthy Diet Activities you can perform: Regular-No Restrictions Follow up Referrals: Cardiology PCP Follow-up Continued Medications: Amlodipine (Amlodipine) 5 Mg Tab 0.5 TAB PO DAILY Blood Pressure Management #30 Ref 0 TAB Cholecalciferol (Vitamin D-3) 2,000 Unit Tab 1 TAB PO DAILY Ciprofloxacin (Cipro) 250 Mg Tab 250 MG PO EVERY OTHER DAY Infection Ref 0 TAB Cyclosporine Opth 0.05% (Restasis Opth 0.05%) 0.05% Emul 1 DROP EACH EYE BID Dry Eye #1 Ref 0 BOX Levothyroxine (Levothyroxine) 88 Mcg Tab 88 MCG PO DAILY Thyroid #30 Ref 0 TAB Simvastatin (Simvastatin) 10 Mg Tab 10 MG PO DAILY Cholesterol Management #30 Ref 0 TAB Telmisartan (Micardis) 40 Mg Tab 40 MG PO DAILY Blood Pressure Management #30 Ref 0 TAB Sindhu Jensen MD December 18, 2016 13:20
[2016-12-18] MEDS ORDERED: ASPI81CH CHEW (13:21)
[2017-01-09] MEDS ORDERED: SIMV20TA PO (13:02)
== END 2016-12-18 15:15 | disposition home or self-care (01) ==
LOC: PHED 18:17 → PHEDA 20:09 → PH3A 21:47
PROVIDERS: ADMIT Internal Medicine; ATTEND Internal Medicine
DX: R07.89 Other chest pain (principal); I10 Essential (primary) hypertension; E03.9 Hypothyroidism, unspecified; R79.89 Other specified abnormal findings of blood chemistry; E78.00 Pure hypercholesterolemia, unspecified; K21.9 Gastro-esophageal reflux disease without esophagitis; M47.896 Other spondylosis, lumbar region; Z88.2 Allergy status to sulfonamides; Z86.73 Personal history of transient ischemic attack (TIA), and cerebral infarction without residual deficits; Z82.49 Family history of ischemic heart disease and other diseases of the circulatory system
CPT/HCPCS: 71010; 78452; 80053; 82550; 83735; 84484; 85025; 85610; 85730; 93005; 93017; 99285; A9502; G0378; J2785

== ENCOUNTER 2016-12-27 09:48 | Day surgery (SDC) | payer MEDICARE, OTHER ==
[~2016-12-27] VITALS: Ht 157.5 cm; Wt 63.0 kg
[~2016-12-27 09:48] MED LIST changes: +ASPI81CH CHEW
[2016-12-27] MEDS ORDERED: NS 1000P @30 MLS/HR (KVO) IV SCH (10:00)
[2016-12-27 10:29] VITALS: BP 143/70; PULSE 75; RESP 18; TEMP 97.6; O2SAT 97
[2016-12-27] MEDS ORDERED: ASPIRIN 325 MG TAB PO SCH (10:30)
[2016-12-27] MEDS ORDERED: NITR1SUB3 SL (10:39)
[2016-12-27] MEDS ORDERED: MULTTAB67 PO (10:39)
[2016-12-27] MEDS ORDERED: ISOS20TA PO (10:39)
[2016-12-27] MEDS ORDERED: ESTR0.62 VAGINAL (10:39)
[2016-12-27 10:42] LABS: BASOPHIL % 0.5 % (0.0-2.0); EOSINOPHIL # 0.1 TH/MM3 (0-0.4); EOSINOPHIL % 1.2 % (0.0-4.0); HEMATOCRIT 39.4 % (35.0-46.0); HEMO FLAGS DIFF FINAL; LYMPH % 20.1 % (9.0-44.0); MEAN CELL VOLUME 88.2 FL (80.0-100.0); MEAN CORPUSCULAR HEMOGLOBIN 29.1 PG (27.0-34.0); MONO % 7.4 % (0.0-8.0); NEUT % 70.8 % (16.0-70.0); PLATELET COUNT 262 TH/MM3 (150-450); RED BLOOD COUNT 4.47 MIL/MM3 (4.00-5.30); RED CELL DISTRIBUTION WIDTH 13.8 % (11.6-17.2); WHITE BLOOD COUNT 9.9 TH/MM3 (4.0-11.0)
[2016-12-27 10:52] LABS: APTT (PATIENT) 25.5 SEC (24.3-30.1); PROTHROMBIN TIME - PATIENT 10.9 SEC (9.8-11.6)
[2016-12-27 11:00] LABS: BICARBONATE 22.5 MEQ/L (21.0-32.0)
[2016-12-27] MEDS ORDERED: SODIUM CHLOR 0.9% 1000 ML INJ 1,000 ML IV SCH (11:00)
[2016-12-27] MEDS ORDERED: MIDAZOLAM HCL 2 MG/2 ML VIAL ONE (12:16)
[2016-12-27] MEDS ORDERED: HEPARIN-NS/PF INJ 500 ML ONE (12:16)
--- NOTE | 2016-12-27 13:35 | CATHPROC ---
9Lenses HIS Report Study Information Study Number Admission Scheduled Start Study Start [id number] Dec 27 2016 9:48AM 12/27/2016 Dec 27 2016 12:00PM [place] Service Cardiac Catheterization Admit Source Facility Department Other [facility] - Packing Tractor Machine Operator Physician and Clinical Staff Initial Arash Thrasher Food Manager Elisabeth Sellers,RN Other cathlab, cathlab Recorder Carlyle Lin RCIS(BS) Scrub America Mccann,COMPLAINT EVALUATION SUPERVISOR TECH2 Procedures Performed Procedure Location (Site) Vessel Name Angiogram LV LV Ventricle Coronary Angiograms LCA Left Coronary Coronary Angiograms RCA Right Coronary L Heart Cath Equipment Time Bandoleer Straightener Stamper Description Size Mfg Part Number Used/Scraped TRANSDUCER, TRUWAVE [id number] 12:06 DEE SELLERS * Used W/STOCKCOCK *[id number]- INTRODUCER SET, 12:06 [facility]. FR 5 SC-NT-U-SST Used MICROPUNCTURE, STIFFENED *[id number] 538-476 *[id number] 538-420 *[id number] 538-453S *[id number] 12:06 [employer] PACK, CCL CUSTOM * Used *[id number] 12:06 [employer] PACER PEN, SKIN DUAL W/ RULER * Used *[id number] 12:06 Smart [employer] WIRE, 3MMJ .035 180CM 180CM Used *[id number] PROBE COVER, STERILE [id number] 12:06 [employer] * Used ULTRASOUND W/ GEL *[id number] 12:06 NAMIC MANIFOLD, 4 PORT * Used *[id number] 12:06 [employer] OMNIPAQUE, 350 MG, 150ML 150ML [id number] Used 13:10 [employer] OMNIPAQUE, 350 MG, 50ML 50ML [id number] Used [id number] 12:06 [employer] BLANKET,WARM AIR CCL * Used *[id number] 12:06 [employer] MEDICAL SHEATH, FR4 TERUMO (10CM) FR 4 [id number] Used History: Current Medications Medication Dosage/Unit Route Frequency Last Date/Time Taken NTG Patch Statins (any) History: Allergies Allergy Reaction Sulfa Rash JENIFER Inhibitors COUOGH Nitrofurantoin History: Risk Factors Family History of Hypertension Dyslipidemia Previous NM Previous Heart Failure Premature CAD Yes Yes Yes No No Prior Valve Prior PCI Prior CABG Surgery No No No Cerebrovascular Peripheral Artery Chronic Lung On Dialysis Diabetes Disease Disease Disease No No No No No History: Stress Tests Stress or Imaging Studies Performed Yes Standard Exercise Stress Test No Stress Echo No Stress Test SPECT Stress Test SPECT Result Stress Test SPECT Ischemia Risk/Extent Yes Positive Unavailable Stress Test CMR No Cardiac CTA Coronary Calcium Score No No History: Other Disease Selection Items HTN History: Other Current Smoker No Labs Hgb (g/dl) Hct (%) WBC (l/cumm) Platelets (thousands) 12.00-18.00 37.00-55.00 4.80-10.80 140.00-450.00 13.0 39.4 9.9 262 Glucose (mg/dl) BUN (mg/dl) Creatinine (mg/dl) BUN:Creatinine (1:x) 60.00-110.00 8.00-20.00 0.10-9.00 10.00-20.00 102 12 0.8 15 Na (meq/l) K (meq/l) 138.00-146.00 3.80-5.10 131 4 INR (PTT:PT) 0.50-2.00 1 CPK-MB (ng/ML) 0.00-7.00 Not Drawn Medication Medication Total Dose (Bolus/Oral) Medication Total Dosage/Unit 1% XYLOCAINE 20 mL FENTANYL 50 mcg OXYGEN 3 l/min VERSED 2 mg Medications (Bolus/Oral) Medication Time Given Dosage/Unit Administered By Reason VERSED 12/27/2016 12:54:02 PM 2 mg Elisabeth Sellers 2 mg VERSED given in lab by Elisabeth Sellers RN in Left Forearm via Peripheral IV. Ordered by Arash Kinney. FENTANYL 12/27/2016 12:55:02 PM 50 mcg Elisabeth Sellers 50 mcg FENTANYL given in lab by Elisabeth Sellers RN in Left Forearm via Peripheral IV. Ordered by Arash Farah. OXYGEN 12/27/2016 12:59:02 PM 3 l/min Elisabeth Sellers 3 l/min OXYGEN given in lab by Elisabeth Sellers RN via Nasal. Ordered by Arash Rodriguez. 1% XYLOCAINE 12/27/2016 12:59:23 PM 20 mL Arash Rodriguez 20 mL 1% XYLOCAINE given in lab by Arash Rodriguez in Right Groin via Subcutaneous. Ordered by Arsah Kinney. Medication (Drip) Medication Time Given Dosage/Unit Concentration/Unit Diluent (ml) Solution IV Solutions 12/27/2016 12:08:33 PM 0 mL (IV) 500 NaCl .9 Patient arrived on IV Solutions given by mendy brooke in Left Forearm via Peripheral IV. Pump/Dri p Flow = 20 ml/hr using NaCl .9. Ordered by Arash Rodriguez. Initial Case Assessment Cardiovascular HR Rhythm NIBP Chest Pain 82 sinus 146/75 0 Edema Present Skin color Skin None Normal Warm Dry Circulatory - Right Pulses Dorsalis Pedis Femoral 2 3 Scale (0,1,2,3,4,d) Circulatory - Left Pulses Dorsalis Pedis Femoral 2 3 Scale (0,1,2,3,4,d) Neurological State Oriented to time-place- Alert Moves all extremities person Respiration - General Respiration Rate SpO2 (%) (B/min) 15 95 Final Case Assessment Cardiovascular HR Rhythm NIBP Chest Pain 71 sinus 109/47 0 Edema Present Skin color Skin None Normal Warm Dry Circulatory - Right Pulses Dorsalis Pedis Femoral 2 3 Scale (0,1,2,3,4,d) Circulatory - Left Pulses Dorsalis Pedis Femoral 2 3 Scale (0,1,2,3,4,d) Neurological State Oriented to time-place- Alert Moves all extremities person Respiration - General Respiration Rate SpO2 (%) (B/min) 15 97 Chronological Log Time Study Chronological Log 12:08:16 Patient arrived via Bed. 12:08:19 Patient Name, D.O.B, / Armband Verified By R.N. 12:08:20 Consent signed by the physician and the patient and verified by the Packing Tractor Machine Operator staff. 12:08:20 Pre-op and post- op instructions given; patient acknowledges understanding of instructions. 12:08:25 Verbal Stimulation=2 Physical Stimulation=2 Airway=2 Respiration=2 TOTAL=8. (0=absent, 1=li mited, 2=present) 12:08:25 Presedation assessment performed by Packing Tractor Machine Operator RN. 12:08:27 Immediate Presedation assesment performed by physician. 12:08:28 Patient has been NPO for More than 6Hrs. 12:08:29 Skin Breakdown- none per patient 12:08:30 Patient Warmer Placed on the Table. 12:08:32 Viral Prominences Protected 12:08:33 A # 20 IV was noted in the Forearm (left). Grade = 0 Patient arrived on IV Solutions given by cathlab, cathlab in Left Forearm via Peripheral IV. Pu mp/Drip Flow = 20 ml/hr 12:08:33 using NaCl .9. Ordered by Arash Rodriguez. 12:08:34 History and physical on the chart or being dictated. Vitals capture started with the following parameters, Patient=Adult, Interval=15 min, Initial P kapktuu=717 mmHg, 12:15:37 Deflation Rate=5 mmHg Assessment: Initial Case, HR=82 BPM, Rhythm=sinus, NYQJ=159/75 mmhg, Chest Pain=0, Edema=None, Color=Normal, Skin = Warm, Dry Right Pulses: Greg Ped=2, Femoral=3 12:15:44 Left Pulses: Greg Ped=2, Femoral=3 Neurological: State=Alert, Ox3, FLOWER Respiration: Resp=15 B/min, SpO2=95 % 12:16:02 Reference ECG taken 12:16:50 HR=73 bpm, YVZY=629/75 mmhg, SpO2=98.0 %, Resp=15 B/min, Pain=0, Socorro=10, Huitron=2 12:21:18 HR=72 bpm, UGEB=454/68 mmhg, SpO2=97.0 %, Resp=14 B/min, Pain=0, Socorro=10, Huitron=2 12:25:37 Bilateral groins prepped with 2% chlorhexidine, and with a 3 min. waiting time. 12:26:13 HR=73 bpm, SDVL=729/76 mmhg, SpO2=97.0 %, Resp=15 B/min, Pain=0, Socorro=10, Huitron=2 12:29:06 Pressure channel 1 zeroed. 12:30:13 MD paged 12:31:17 HR=68 bpm, LYBG=788/65 mmhg, SpO2=96.0 %, Resp=15 B/min, Pain=0, Socorro=10, Huitron=2 12:36:16 HR=69 bpm, OFLB=036/67 mmhg, SpO2=97.0 %, Resp=12 B/min, Pain=0, Socorro=10, Huitron=2 12:41:19 HR=72 bpm, GBCU=147/64 mmhg, SpO2=95.0 %, Resp=17 B/min, Pain=0, Socorro=10, Huitron=2 12:46:16 HR=68 bpm, NNFO=417/62 mmhg, SpO2=96.0 %, Resp=16 B/min, Pain=0, Socorro=10, Huitron=2 12:51:13 HR=73 bpm, JSAV=835/69 mmhg, SpO2=98.0 %, Resp=15 B/min, Pain=0, Socorro=10, Huitron=2 12:54:02 2 mg VERSED given in lab by Elisabeth Sellers, SALVADOR in Left Forearm via Peripheral IV. Ordere d by Arash Rodriguez. 12:54:23 MD arrived. 12:54:29 Contrast Scanned 12:54:30 Immediate Presedation assesment performed by physician. 50 mcg FENTANYL given in lab by Elisabeth Sellers, SALVADOR in Left Forearm via Peripheral IV. Ordere d by Michael, 12:55:02 Arash. 12:56:55 HR=67 bpm, BAAY=526/56 mmhg, SpO2=94.0 %, Resp=15 B/min, Pain=0, Socorro=10, Huitron=2 Time Out. Correct patient, correct procedure,correct physician, ,power injector loaded with con trast with surgical team 12:58:47 present. Time Out Concurred by , individual staff in procedure 12:58:56 Case Start 12:58:57 Verbal Stimulation=2 Physical Stimulation=2 Airway=2 Respiration=2 TOTAL=8. (0=absent, 1=li mited, 2=present) 12:59:02 3 l/min OXYGEN given in lab by Elisabeth Sellers, SALVADOR via Nasal. Ordered by Arash Rodriguez . 20 mL 1% XYLOCAINE given in lab by Arash Rodriguez in Right Groin via Subcutaneous. Ordered by Michael, 12:59:23 Arash. 13:00:18 Access site was Right Femoral Artery. A INTRODUCER SET, MICROPUNCTURE, STIFFENED FR 5 was advanced into the Fem Art (right) using the 13:00:21 Percutaneous technique. A SHEATH, FR4 TERUMO (10CM) FR 4 was exchanged in the Fem Art (right). This was necessary in or shirley to 13:00:41 accomodate a larger catheter. A JL 4.0 INFINITI CATHETER FR 4 was advanced over a wire. OMNIPAQUE, 350 MG, 150ML 150ML was us ed for 13:01:10 injections. 13:01:13 HR=73 bpm, NIBP=96/55 mmhg, SpO2=96.0 %, Resp=12 B/min, Pain=0, Socorro=10, Huitron=2 Recorded Pressure: Ao, HR=67, Condition=Condition 1 13:03:57 (Aorta) Ao 84/42/60 13:04:10 The LCA was injected and visualized at various angles. OMNIPAQUE, 350 MG, 150ML 150ML used . 13:06:10 HR=74 bpm, HXKH=545/57 mmhg, SpO2=96.0 %, Resp=12 B/min, Pain=0, Socorro=10, Huitron=2 13:07:12 Catheter was removed A 3DRC INFINITI CATHETER FR 4 was advanced over a wire. OMNIPAQUE, 350 MG, 150ML 150ML was used for 13:07:13 injections. 13:09:22 The RCA was injected and visualized at various angles. OMNIPAQUE, 350 MG, 150ML 150ML used . 13:09:54 Catheter was removed A PIGTAIL ANG. INFINITI CATHETER FR 4 was advanced over a wire. OMNIPAQUE, 350 MG, 150ML 150ML was used 13:09:54 for injections. 13:11:15 HR=72 bpm, OJHD=636/47 mmhg, SpO2=96.0 %, Resp=15 B/min, Pain=0, Socorro=10, Huitron=2 Recorded Pressure: LV, HR=73, Condition=Condition 1 13:12:07 (Left Ventricle) LV 93/1/4 13:13:10 The LV was injected at ~CC/SEC~ cc/sec for a total of ~TOTAL~. OMNIPAQUE, 350 MG, 50ML 50M L used. 13:14:12 Catheter was removed 13:14:58 Case End 13:15:04 Sheath removed; pressure applied to access site. Assessment: Final Case, HR=71 BPM, Rhythm=sinus, KQZG=419/47 mmhg, Chest Pain=0, Edema=None, Color=Normal, Skin = Warm, Dry Right Pulses: Greg Ped=2, Femoral=3 13:15:08 Left Pulses: Greg Ped=2, Femoral=3 Neurological: State=Alert, Ox3, FLOWER Respiration: Resp=15 B/min, SpO2=97 % 13:16:03 No case complications noted. 13:16:04 Cine recording checked. 13:16:07 Bedside Report will be given. 13:16:09 Contrast Scanned 13:16:10 Verbal Stimulation=2 Physical Stimulation=2 Airway=2 Respiration=2 TOTAL=8. (0=absent, 1=l imited, 2=present) 13:16:14 HR=71 bpm, DMKE=871/57 mmhg, SpO2=98.0 %, Resp=19 B/min, Pain=0, Socorro=10, Huitron=2 13:16:17 A Left Heart Cath was performed. 13:21:17 HR=66 bpm, QGUF=124/48 mmhg, SpO2=96.0 %, Resp=14 B/min, Pain=0, Socorro=10, Huitron=2 13:26:14 HR=68 bpm, IXOR=406/54 mmhg, SpO2=96.0 %, Resp=16 B/min, Pain=0, Socorro=10, Huitron=2 13:31:15 HR=65 bpm, BZYT=093/53 mmhg, SpO2=96.0 %, Resp=16 B/min, Pain=0, Socorro=10, Huitron=2 13:34:45 Sterile dressing applied to site 13:34:46 Vitals capture stopped. 13:35:[facility] - Contrast Media Used In Study Contrast Total Opened (mL) Total Used (mL) Total Wasted (mL) Omnipaque 50 50 0 End Study - Maximum Contrast Load Max Contrast Load (mL) 393.8 End Study - Radiation Exposure Fluoro Time (minutes) 3.5 End Study - Patient Disposition Complications Transferred To Interventional Outcome No Packing Tractor Machine Operator Holding No attempt made
[2016-12-27] MEDS ORDERED: IOHEXOL 350 MG/ML 50 ML BTL (for Cath Lab) OTHER ONE (13:59)
--- NOTE | 2016-12-27 16:48 | EKG ---
Date Performed: 12/27/2016 Time Performed: 10:34:04 PTAGE: 81 years EKG: Sinus rhythm with borderline 1st degree A-V block Borderline ECG PREVIOUS TRACING : 12/17/2016 00.56 Compared to prior tracing no significant change DOCTOR: Emeli Manriquez Interpretating Date/Time 12/27/2016 16:47:22
--- NOTE | 2016-12-27 22:16 | MA ---
cc: ARASH RODRIGUEZ SANDRA L. MD DATE OF SURGERY 12/27/16 PROCEDURE Cardiac catheterization INDICATIONS Unstable angina, abnormal nuclear stress test CONSENT Full informed consent was obtained prior to procedure. Risk of , bleeding, myocardial infarction, stroke, foreseen and unforeseen complications were reviewed. The patient fully appeared to understand the risks. PROCEDURAL STATEMENT The patient was draped and prepped in usual manner. The right femoral artery was entered using a micropuncture technique with ultrasound via the 4-Vietnamese sheath. Left and right coronary catheters were used to intubate left and right coronaries. Pigtail catheter left ventricle. Multiple angiograms were carried out. At the end of the catheterization procedure all catheters and sheaths were removed. Manual pressure was applied until good hemostasis achieved. The patient returned to her room in stable condition. FINDINGS HEMODYNAMICS Aortic pressure 84/42 with a mean of 60, left ventricle pressure was 93 with a left ventricular pressure of 4. There was no evidence of gradient on pullback across the LV outflow tract and aortic valve. LEFT VENTRICULOGRAM Revealed ejection fraction of 60%. There was no evidence of MR . The left main was medium sized. The left anterior descending artery was a large vessel. There was evidence of disease in both the LAD at 50% in the mid LAD just at the bifurcation with the diagonal branch. There was also evidence of ostial 50% disease in the diagonal branch and also 50% disease in the mid diagonal branch. The diagonal branch was a medium to large vessel. The LAD was large. The circumflex vessel was a medium-sized vessel with two small first and second obtuse marginal branches and a medium size third obtuse marginal branch. There was a large intermediate ramus that was very tortuous but free of significant disease. The right coronary artery was a large dominant vessel with a large posterior descending artery and large posterolateral branch. CONCLUSION Single-vessel coronary artery disease involving the mid LAD and the diagonal branch of about 50%. Recommend medical management at this time. The nuclear stress test showed an inferior perfusion defect which is not significant. PLAN Medical management. Arash Rodriguez MD, FRCP,[facility]/ /1:35 PM /12:41 PM SANNA
[2017-01-09] MEDS ORDERED: SIMV20TA PO (13:02)
== END 2016-12-27 18:05 | disposition home or self-care (01) ==
LOC: HCAT 09:48 → HDIC 09:49 → HCAT 18:05
PROVIDERS: ATTEND Internal Medicine Cardiovascular Disease
DX: I25.110 Atherosclerotic heart disease of native coronary artery with unstable angina pectoris (principal); Z01.818 Encounter for other preprocedural examination
CPT/HCPCS: 80048; 85025; 85610; 85730; 93005; 93458; C1769; C1893; J1644; J2250; J3010; Q9967

== ENCOUNTER → 2017-01-14 | Outpatient (CLI) | payer MEDICARE, OTHER ==
[~2017-01-14] MED LIST changes: -AMLO5TAB2 PO; +ESTR0.62 VAGINAL; +ISOS20TA PO; +MULTTAB67 PO; +NITR1SUB3 SL; -SIMV10TA PO; +SIMV20TA PO
[2017-01-14 10:55] LABS: ANION GAP 6 MEQ/L (5-15); AST (GOT) 18 U/L (15-37); BICARBONATE 28.6 MEQ/L (21.0-32.0); BLOOD UREA NITROGEN 13 MG/DL (7-18); CHLORIDE 99 MEQ/L (98-107); GLOMERULAR FILTRATION RATE 91 ML/MIN (>89); GLUCOSE,FASTING 81 MG/DL (74-99); SODIUM (NA) 134 MEQ/L (136-145)
[2017-01-14 10:59] LABS: ALKALINE PHOSPHATASE 87 U/L (45-117); ALT (GPT) 24 U/L (10-53); HDL CHOLESTEROL 64.4 MG/DL (40.0-60.0); LDL CHOLESTEROL 57 MG/DL (0-99); TOTAL BILIRUBIN ADULT 0.3 MG/DL (0.2-1.0)
== END ==
LOC: PLAB 07:22
PROVIDERS: ATTEND Family Medicine
DX: I10 Essential (primary) hypertension (principal); E78.2 Mixed hyperlipidemia
CPT/HCPCS: 36415; 80053; 80061

== ENCOUNTER → 2017-07-24 | Outpatient (CLI) | payer MEDICARE, OTHER ==
[~2017-07-24] MED LIST changes: +ASPI-516 CHEW; -ASPI81CH CHEW; +BETH25TA2 PO; +CARV12.52 PO; +CIPR250T2 PO; +ECASA81 PO; +OMEP20TA93 PO
[2017-07-24 09:45] LABS: ALBUMIN 3.9 GM/DL (3.4-5.0); AST (GOT) 17 U/L (15-37); BICARBONATE 26.1 MEQ/L (21.0-32.0); BLOOD UREA NITROGEN 14 MG/DL (7-18); CALCIUM 9.4 MG/DL (8.5-10.1); CHLORIDE 97 MEQ/L (98-107); CREATININE 0.56 MG/DL (0.50-1.00); GLOMERULAR FILTRATION RATE 104 ML/MIN (>89); GLUCOSE,FASTING 87 MG/DL (74-99); SODIUM (NA) 131 MEQ/L (136-145)
[2017-07-24 09:46] LABS: CHOLESTEROL 135 MG/DL (120-200); TRIGLYCERIDES 82 MG/DL (42-150)
[2017-07-24 09:50] LABS: ALKALINE PHOSPHATASE 95 U/L (45-117); ALT (GPT) 20 U/L (10-53); HDL CHOLESTEROL 67.5 MG/DL (40.0-60.0); LDL CHOLESTEROL 51 MG/DL (0-99); TOTAL BILIRUBIN ADULT 0.4 MG/DL (0.2-1.0); TOTAL PROTEIN 7.8 GM/DL (6.4-8.2)
[2017-07-24 09:59] LABS: AUTOMATED NEUTROPHIL # 5.1 TH/MM3 (1.8-7.7); BASOPHIL # 0.1 TH/MM3 (0-0.2); BASOPHIL % 0.7 % (0.0-2.0); EOSINOPHIL # 0.3 TH/MM3 (0-0.4); EOSINOPHIL % 3.4 % (0.0-4.0); HEMATOCRIT 36.9 % (35.0-46.0); HEMOGLOBIN 12.6 GM/DL (11.6-15.3); LYMPH % 20.4 % (9.0-44.0); LYMPHOCYTE # 1.6 TH/MM3 (1.0-4.8); MEAN CELL VOLUME 88.2 FL (80.0-100.0); MEAN PLATELET VOLUME 7.6 FL (7.0-11.0); MONO % 10.1 % (0.0-8.0); MONOCYTE # 0.8 TH/MM3 (0-0.9); NEUT % 65.4 % (16.0-70.0); PLATELET COUNT 250 TH/MM3 (150-450); RED BLOOD COUNT 4.18 MIL/MM3 (4.00-5.30); RED CELL DISTRIBUTION WIDTH 14.1 % (11.6-17.2); WHITE BLOOD COUNT 7.7 TH/MM3 (4.0-11.0)
== END ==
LOC: PLAB 07:45
PROVIDERS: ATTEND Family Medicine
DX: I10 Essential (primary) hypertension (principal); I25.10 Atherosclerotic heart disease of native coronary artery without angina pectoris; K21.9 Gastro-esophageal reflux disease without esophagitis; R11.0 Nausea
CPT/HCPCS: 36415; 80053; 80061; 85025